=== PATIENT | male | born 1955 | race Caucasian/White ===

== ENCOUNTER 2016-12-01 05:51 | Inpatient (IN) | payer OTHER ==
--- NOTE | 2016-11-17 14:06 | PAT Medication Instructions ---
Service Date Nov 17, 2016. Current Home Medication List No Active Prescriptions or Reported Meds Medication Instructions For Your Scheduled Surgery No Active Prescriptions or Reported Meds- Please contact PAT department if starting any medications prior to surgery. If you have any questions please call us at [phone] (Yani Cabral PA-C) or [phone] or [phone]
[2016-11-17 14:21] LABS: BASO % 0.4 %; BASO ABS # 0.02 K/uL (0-0.2); COMPLETE YES; HEMATOCRIT 44.1 % (42-52); IG% 0.2 %; LYMPH % 27.1 %; LYMPH ABS # 1.39 K/uL (1.2-3.4); MEAN CELL VOLUME 86.1 fL (80-100); MEAN CORPUSCULAR HEMOGLOBIN 29.9 pg (25-34); MEAN CORPUSCULAR HGB CONC 34.7 g/dl (32-36); MEAN PLATELET VOLUME 10.5 fL (7.4-10.4); MONO % 5.1 %; NEUT % 66.2 %; PLATELET COUNT 232 K/uL (130-400); RED BLOOD COUNT 5.12 M/uL (4.7-6.1); WHITE BLOOD COUNT 5.12 K/uL (4.8-10.8)
--- NOTE | 2016-11-17 14:24 | DIAGNOSTIC IMAGING REPORT ---
CHEST PREADMISSION(PA/LAT) CLINICAL HISTORY: Preoperative evaluation. COMPARISON STUDY: No previous studies for comparison. FINDINGS: Lung volumes are at the lower limits of normal. There is no pneumothorax or pleural effusion. There is no evidence of pulmonary edema. Cardiac size is at the upper limits of normal. Linear right lower lung opacities favor atelectasis. There is no evidence of pulmonary edema. IMPRESSION: No acute cardiopulmonary findings. Electronically signed by: Juan Jenkins M.D. 11/17/2016 2:22 PM Dictated Date/Time: 11/17/2016 2:22 PM
[2016-11-17 14:47] LABS: URINE APPEARANCE CLEAR (CLEAR); URINE BILIRUBIN NEG (NEG); URINE COLOR YELLOW; URINE NITRITE NEG (NEG); URINE SPECIFIC GRAVITY 1.012 (1.000-1.030); UROBILINOGEN NEG (NEG)
[2016-11-17 14:53] LABS: MANUAL MICROSCOPIC REQUIRED? NO; REVIEW REQ? NO
[2016-11-17 15:30] LABS: CALCIUM 9.5 mg/dl (8.5-10.1)
[2016-11-17 15:58] LABS: BUN/CREATININE RATIO 10.2 (10-20); CREATININE 0.89 mg/dl (0.60-1.40); POTASSIUM 4.2 mmol/L (3.5-5.1)
[~2016-12-01] VITALS: Ht 180.3 cm; Wt 98.7 kg
[2016-12-01] VITALS (15 sets, daily range): BP systolic 134–158; BP diastolic 79–95; PULSE 69–86; TEMP 36.3–36.8; O2SAT 93–96; Ht 180.3 cm; Wt 98.7 kg
[2016-12-01] MEDS ORDERED: LACTATED RINGER'S 1000ML 1,000 ML IV SCH (06:00)
[2016-12-01] MEDS ORDERED: CEFAZOLIN 2000 MG/60 ML D5W IV SCH (06:00)
[2016-12-01] MEDS ORDERED: FENTANYL CITRATE INJ 50 MCG/1 ML 2 ML VIAL ONE ×4 (06:43→09:22)
[2016-12-01] MEDS ORDERED: MIDAZOLAM HCL 1 MG/ML 2ML VIAL ONE (06:43)
[2016-12-01] MEDS ORDERED: BACITRACIN 50000 UNIT VIAL ONE (07:01)
[2016-12-01] MEDS ORDERED: SODIUM CHLORIDE 0.9% PF 50 ML VIAL ONE (07:01)
--- NOTE | 2016-12-01 07:31 | History & Physical Bridge Note ---
H&P Re-Evaluation Bridge Note: I have examined the patient, reviewed the History & Physical and in the interval since the performance of the History & Physical I have noted the following changes of clinical significance: No changes noted
--- NOTE | 2016-12-01 07:33 | History and Physical ---
History & Physical Date December 01, 2016. Chief Complaint neck and arm pain History of Present Illness The patient is a 60 year old male with complaints of Additional History Hepatic Disease: No Endocrine Disorder: No Kidney Disease: No Hypertension: No Heart Disease: No Bleeding Tendencies: No Infectious Diseases: No Allergies Coded Allergies: Penicillins (Verified Allergy, Unknown, UNKNOWN, 12/01/16) Home Medications No Active Prescriptions or Reported Meds Physical Examination Skin: warm/dry, no rash Eyes: normal inspection, EOMI, sclerae normal ENT: normal ENT inspection, pharynx normal Head: normocephalic, atraumatic Neck: supple, no adenopathy, trachea midline Respiratory/Chest: lungs clear, normal breath sounds, no respiratory distress Cardiovascular: regular rate, rhythm, no edema, no murmur Abdomen / GI: normal bowel sounds, non tender Back: normal inspection Extremities: normal inspection, normal range of motion Neurologic/Psych: no motor/sensory deficits, alert, normal reflexes, oriented x 3 Diagnosis cervical stenosis Plan of Treatment anterior discectomy C4-5 corpectomy C6 with fusion
[2016-12-01] MEDS ORDERED: NURSING VERBAL MED ORDER ONE (07:35)
[2016-12-01] MEDS ORDERED: CLINDAMYCIN 600 MG/54 ML D5W IV ONE (07:36)
[2016-12-01] MEDS ORDERED: NALOXONE HCL 0.4 MG/1 ML VIAL/CARP IV PRN ×2 (08:00→10:00)
[2016-12-01] MEDS ORDERED: ATROPINE SULFATE 0.1 MG/ML 5ML SYR IV PRN (08:00)
[2016-12-01] MEDS ORDERED: FLUMAZENIL 0.1 MG/1 ML 10 ML VIAL IV PRN (08:00)
[2016-12-01] MEDS ORDERED: ONDANSETRON INJ 2 MG/ML 2 ML VIAL IV PRN ×2 (08:00→10:00)
[2016-12-01] MEDS ORDERED: MEPERIDINE HCL 25 MG/ML CARP IV PRN (08:00)
[2016-12-01] MEDS ORDERED: PHENYLEPHRINE 100MCG/ML 5ML SYR IV PRN (08:00)
[2016-12-01] MEDS ORDERED: HYDROmorphone INJ 1 MG/ML SYR IV PRN ×2 (08:00→10:00)
[2016-12-01] MEDS ORDERED: LABETALOL HCL IV 5 MG/ML 20ML IV PRN (08:00)
[2016-12-01] MEDS ORDERED: EpHEDrine SULFATE INJ 50 MG/ML AMP IV PRN (08:00)
[2016-12-01] MEDS ORDERED: MoRPHine SULFATE 10 MG/ML CARP/VIAL IV PRN (08:00)
[2016-12-01] MEDS ORDERED: HYDROmorphone INJ 2 MG/ML SYR/VIAL ONE ×2 (08:03→10:04)
[2016-12-01] MEDS ORDERED: ROCURONIUM BROMIDE 10 MG/ML 5 ML VIAL ONE (09:24)
[2016-12-01] MEDS ORDERED: PROPOFOL IV EMULSION 10 MG/ML 20 ML VIAL IV ONE (09:24)
[2016-12-01] MEDS ORDERED: DEXAMETHASONE SOD INJ 4 MG/ML VIAL ONE (09:24)
[2016-12-01] MEDS ORDERED: EpHEDrine SULFATE 50MG/5ML SYR ONE ×2 (09:24→10:15)
[2016-12-01] MEDS ORDERED: LIDOCAINE HCL 2% 2 ML VIAL (20MG/ML) ONE (09:24)
[2016-12-01] MEDS ORDERED: FLOSEAL HEMOSTATIC MATRIX 5ML TOP ONE (09:46)
[2016-12-01] MEDS ORDERED: ACETAMINOPHEN IV 100 ML IV PRN (10:00)
[2016-12-01] MEDS ORDERED: MAGNESIUM HYDROXIDE SUSP 30 ML UDC PO PRN (10:00)
[2016-12-01] MEDS ORDERED: DEXAMETHASONE INJ 8 MG in SYRINGE 0 ML IV PRN (10:00)
[2016-12-01] MEDS ORDERED: RACEPINEPHRINE 2.25% NEBU SOLN 0.5 ML VIAL INH PRN (10:00)
[2016-12-01] MEDS ORDERED: LORAZEPAM 0.5 MG TAB PO PRN (10:00)
[2016-12-01] MEDS ORDERED: LORAZEPAM INJ 0.5 MG in SYRINGE 0.75 ML IV PRN (10:00)
[2016-12-01] MEDS ORDERED: DiphenhydrAMINE HCL 50 MG/ML VIAL IV PRN (10:00)
[2016-12-01] MEDS ORDERED: DO NOT ADMINISTER FLU VACCINE PRN ×3 (10:00)
[2016-12-01] MEDS ORDERED: OXYCODONE HCL IR 5 MG TAB (IMMEDIATE RELEASE) PO PRN (10:00)
[2016-12-01] MEDS ORDERED: DO NOT ADMINISTER PNEUMOCOCCAL VACCINE PRN ×2 (10:00)
[2016-12-01] MEDS ORDERED: NEOSTIGMINE METHYLSULFATE 1 MG/ML 10ML VIAL ONE (10:15)
[2016-12-01] MEDS ORDERED: ONDANSETRON INJ 2 MG/ML 2 ML VIAL ONE (10:15)
[2016-12-01] MEDS ORDERED: GLYCOPYRROLATE INJ 0.2 MG/ML VIAL ONE (10:15)
[2016-12-01] MEDS ORDERED: ESMOLOL HCL 10 MG/ML 10 ML VIAL ONE (10:15)
--- NOTE | 2016-12-01 10:26 | DIAGNOSTIC IMAGING REPORT ---
INTRAOPERATIVE FLUOROSCOPIC IMAGES OF THE CERVICAL SPINE CLINICAL HISTORY: ACDF C4-5/C6 CORPECTOMY COMPARISON STUDY: No previous studies for comparison. Fluoroscopy time: 10 seconds. FINDINGS: 2 fluoroscopic images demonstrate C4-C5 discectomy. There is a C6 corpectomy. There are 2 screws at the C4, C5 and C7 levels. IMPRESSION: Fluoroscopic images demonstrate a C4-C5 anterior discectomy and C6 corpectomy. Electronically signed by: Juan Jenkins M.D. 12/01/2016 10:25 AM Dictated Date/Time: 12/01/2016 10:24 AM
--- NOTE | 2016-12-01 11:11 | Anesthesiology Progress Note ---
Anesthesia Post Op Note Date & Time December 01, 2016 at 11:11 Vital Signs Pain Intensity: 0 Vital Signs Past 12 Hours Date Time Temp Pulse Resp B/P Pulse Ox O2 Delivery O2 Flow Rate FiO2 12/01/16 10:15 36.1 78 16 155/90 96 Mask 10 12/01/16 06:28 36.5 69 20 150/95 95 Room Air Notes Mental Status: alert / awake / arousable, participated in evaluation Pt Amnestic to Procedure: Yes Nausea / Vomiting: adequately controlled Pain: adequately controlled Airway Patency, RR, SpO2: stable & adequate BP & HR: stable & adequate Hydration State: stable & adequate Anesthetic Complications: no major complications apparent
[2016-12-01] MEDS: LACTATED RINGER'S 1000ML 1,000 ML IV SCH ×2 (12:00→23:00)
[2016-12-01] MEDS ORDERED: SCOPOLAMINE 1.5 MG TDSY TD SCH (13:00)
--- NOTE | 2016-12-01 13:46 | OPERATIVE REPORT ---
DATE OF OPERATION: 12/01/2016 PREOPERATIVE DIAGNOSES: Cervical spondylosis, myeloradiculopathy. POSTOPERATIVE DIAGNOSIS: Same. PROCEDURE PERFORMED: 1. Anterior cervical corpectomy C6. 2. Anterior cervical discectomy C4-C5. 3. Anterior cervical arthrodesis, C4-C5 and C5-C7. 4. Placement of PEEK cage 8 mm at C4-C5 and a 27 mm in height at C5-C7. 5. Placement of locally harvested morcellized autograft combined with Reva bone grafting in the interbody cages. 6. Application of Beaulieu plate and screws from C4-C7. SURGEON: Dr. Wes Wooten. CLINICAL ATHLETIC INSTRUCTOR: Due to the complex nature of the procedure, the entire surgery was performed with the regulatory assistant of REHAN Monte. The program assistant, under direct supervision, was involved in the actual performance of all aspects of the surgical procedure including hemostasis, tissue retraction and incision, instrument management, patient positioning, and wound closure. ANESTHESIA: General. DISPOSITION: The patient awakened and taken to PACU in stable condition. HISTORY OF PATIENT'S PROBLEMS: This is a 60-year-old male who presents with above-mentioned diagnosis and after failing extensive course of nonoperative care, elected to undergo the above-mentioned procedure. Risks, benefits, pros, cons, and alternatives were outlined in detail preoperatively. PROCEDURE: The patient was met with preoperatively, the case discussed and all questions were addressed. At that point the patient was taken back to operative suite and after undergoing successful general inhalation by the department of anesthesia was placed in supine position on Bi table with head in Jaramillo head bucker. All bony prominences were well padded and the eyes were inspected to ensure there was no external pressure placed upon them. At this point, anterior cervical spine was prepped and draped in normal sterile fashion. With assistance of fluoroscopy, we identified the C5-C6 disk space and transverse incision was placed on the right anterior aspect of the cervical spine overlying this region. Sharp dissection with the assistance of bipolar cautery performed down to and exposing the anterior cervical spine from C4-C7. We verified our position with fluoroscopy. A self-retaining retractor was then placed in. I then proceeded with a complete discectomy of C5-C6 out to the uncovertebral joints bilaterally followed by C6-C7. Surrency distracting pins were then placed in C5 and C7 to distract across the C6 vertebral body. A complete corpectomy was then performed including removal of all posterior fibers, longitudinal ligaments and evidence of disk material within the foramen, particularly the C6-C7 level. After complete decompression, endplates were burred to subcortical bleeding bone and a 25 mm PEEK cage filled with Reva bone grafting locally harvested morcellized autograft tapped into position. I then proceeded to C4-C5 and again a complete discectomy was performed out to the uncovertebral joints bilaterally. I removed all posterior annular fibers and longitudinal ligament for complete decompression. Endplates were burred to subcortical bleeding bone and 8 mm cortical autograft filled with locally harvested morcellized autograft and Reva bone grafting tapped into position. Distracting apparatus was removed, all anterior osteophytes burred to a smooth cortical surface and a Beaulieu plate and screws applied with the assistance of fluoroscopy. Incision was then copiously irrigated, explored to ensure there was no damage to surrounding structures or remaining bleeding. A 10 round RODRIGO drain inserted then closed with 2-0 Vicryl in the fascia, 4-0 Monocryl for final skin closure. Steri-Strips and sterile dressing placed. The patient was awakened and taken to PACU in stable condition. I attest to the content of the Intraoperative Record and any orders documented therein. Any exceptio ns are noted below.
[2016-12-01] MEDS ORDERED: NURSING DECISION MEDICATION ORDER SCH (15:15)
[2016-12-01] MEDS ORDERED: CHLORASEPTIC 1.4% SOLN 180 ML BTL MT PRN (15:15)
[2016-12-01] MEDS: CLINDAMYCIN IV 600 MG in DEXTROSE 5% ADD-VANTAGE 50ML 50 ML IV SCH ×2 (16:03→23:27)
[2016-12-01] MEDS: CHECK SCOPOLAMINE PATCH PLACEMENT SCH ×2 (16:03→23:29)
[2016-12-01] MEDS: DEXAMETHASONE INJ 6 MG in SYRINGE 0 ML IV SCH ×2 (16:03→23:28)
[2016-12-01] MEDS: DOCUSATE SODIUM 100 MG CAP PO SCH (20:52)
[2016-12-02] VITALS (9 sets, daily range): BP systolic 124–136; BP diastolic 73–80; PULSE 76–88; TEMP 36.4–36.8; O2SAT 90–94
[2016-12-02] MEDS ORDERED: RXC5 PO (08:03)
--- NOTE | 2016-12-02 08:04 | Discharge Instructions ---
Discharge Instructions Date of Service December 02, 2016. Admission Reason for Admission: Cervical Spinal Stenosis Discharge Discharge Diagnosis / Problem: cervical stenossi Discharge Goals Goal(s): Improve function Activity Recommendations Activity Limitations: per Instructions/Follow-up section . Instructions / Follow-Up Instructions / Follow-Up ACTIVITY RECOMMENDATIONS: SELF CARE INSTRUCTIONS AFTER CERVICAL FUSIONS 1. No smoking. Smoking drastically decreases the chance of a solid fusion. 2. No bending, lifting more than 5 pounds, or twisting (roll like a log when turning in bed). 3. You may shower 3 days after surgery. Thoroughly dry wound. Do not soak in the tub. 4. Cervical collar: Must be worn at all times including sleeping. You may remove the brace only to bath, eat and if you are sitting in a recliner. 5. Please walk as much as you can for exercise. Gradually increase the distance that you walk as your endurance increases. SPECIAL CARE INSTRUCTIONS: VERY IMPORTANT TO READ AND REVIEW A. Do not take any anti-inflammatory medications (i.e. Indocin, Advil, Aspirin, Naprosyn, Aleve, Motrin, etc.) as these may inhibit the chance of a solid fusion. Tylenol is okay to take. B. Your surgical incision has been closed with a cosmetic suture under the skin that will dissolve in about 6 weeks. In 14 days, you can use a pair of clean scissors and cut the suture that is left outside of the skin at the ends of your incision. C. Complications are uncommon, but please contact us if you have any signs or symptoms of: 1. wound infection (fever higher than 102.5 degrees F, redness, separation of wound, drainage, or increasing pain from the incision) 2. blood clots in legs (pain, swelling, redness and warmth in legs) 3. urinary tract infection (fever higher than 102.5 degrees, burning upon urination or increased frequency of urination) 4. nerve problems (inability to walk on your toes or heels, numbness, loss of bowel or bladder control) 5. any other symptoms that concern you. D. Please call the office at if you have any concerns or questions about your operation or recovery. MANAGING PAIN AFTER SPINAL SURGERY 1. Narcotic medication is intended for short-term use and will be provided for surgical pain. Surgical pain usually lasts for a period of 4-6 weeks. Narcotic medication includes Percocet, Vicodin, Darvocet, Tylenol #3 or Lortab. 2. Longer-term pain is more appropriately treated with non-narcotic medication such as Tylenol ES. 3. Muscle spasm is not appropriately treated with narcotics. Muscle relaxers such as Soma, Flexeril or Skelaxin can be used along with Tylenol ES. 4. Remember that we all live with some "aches and pains". This is not unusual or uncommon after an injury or as we get older. 5. We will provide appropriate medication within the normal guidelines of their prescribed use. We will also be very cautious and aware of potential abuse and extended duration of patients' medication needs. 6. Please allow 2-3 days to process refills. Prescriptions will not be mailed but must be picked up at the office. FOLLOW UP VISIT: Keep your scheduled follow-up appointment. Any questions, please call the office at . Current Hospital Diet Patient's current hospital diet: Clear Liquid Diet Discharge Diet Recommended Diet: Regular Diet Procedures Procedures Performed: C4-C5 Anterior Cervical Discectomy and Fusion; Removal of Intervertebral Disc / Decompression; Placement of Prosthetic Spacer / Allograft ; Anterior Plate and Screw Fixation; C6 Corpectomy Pending Studies Studies pending at discharge: no Medical Emergencies . Who to Call and When: Medical Emergencies: If at any time you feel your situation is an emergency, please call 911 immediately. . Non-Emergent Contact Non-Emergency issues call your: Primary Care Provider . "Provider Documentation" section prepared by Wes Wooten. . VTE Core Measure Inpt VTE Proph given/why not?: Bam Bro, SCD's
[2016-12-02] MEDS: CLINDAMYCIN IV 600 MG in DEXTROSE 5% ADD-VANTAGE 50ML 50 ML IV SCH (08:18)
[2016-12-02] MEDS: CHECK SCOPOLAMINE PATCH PLACEMENT SCH (08:19)
[2016-12-02] MEDS: DOCUSATE SODIUM 100 MG CAP PO SCH (08:19)
[2016-12-02] MEDS: DEXAMETHASONE INJ 6 MG in SYRINGE 0 ML IV SCH (08:19)
--- NOTE | 2016-12-02 08:29 | DISCHARGE SUMMARY ---
DATE OF DISCHARGE: 12/02/2016. PRINCIPAL DIAGNOSIS: Cervical spinal stenosis. HOSPITAL COURSE FOLLOWS: On 12/01/2016 patient underwent anterior cervical discectomy and fusion and corpectomy and tolerated this well and taken to the orthopedic floor postoperatively. Postop day #1, he was ambulating well. Arm symptoms improved, swallowing without difficulty. RODRIGO drain decreased appropriately. Subsequently discharged home. Discharge orders and instructions can be found on the chart for further review.
--- NOTE | 2016-12-02 08:40 | Anesthesiology Progress Note ---
Anesthesia Post Op Note Date & Time December 02, 2016 at 08:39 Vital Signs Pain Intensity: 6.0 Vital Signs Past 12 Hours Date Time Temp Pulse Resp B/P Pulse Ox O2 Delivery O2 Flow Rate FiO2 12/02/16 07:58 82 16 92 Room Air 12/02/16 07:04 36.6 80 16 128/80 92 Room Air 12/02/16 06:50 36.4 80 16 134/78 90 Room Air 12/02/16 05:57 Room Air 93.0 12/02/16 04:50 36.6 80 16 136/78 94 Nasal Cannula Humidified Oxygen 12/02/16 03:34 76 16 93 Nasal Cannula 2.0 12/02/16 02:50 36.6 77 16 125/76 94 Nasal Cannula Humidified Oxygen 12/02/16 00:48 36.5 82 16 128/73 93 Nasal Cannula 3.0 Humidified Oxygen 12/01/16 23:34 86 16 95 Nasal Cannula 3.0 12/01/16 23:30 Nasal Cannula 2.0 Humidified Oxygen 12/01/16 22:50 36.8 85 18 158/85 94 Nasal Cannula 3.0 Humidified Oxygen 12/01/16 20:47 36.6 85 18 157/79 94 Humidified Oxygen 3.0 Notes Mental Status: alert / awake / arousable, participated in evaluation Anesthetic Complications: no major complications apparent
[2016-12-03] MEDS ORDERED: BISACODYL 5 MG TABEC PO PRN (06:00)
[2016-12-03] MEDS ORDERED: BISACODYL 10 MG SUPP PR PRN (06:00)
== END 2016-12-02 11:32 | disposition home or self-care (01) | DRG 473 ==
LOC: ENRESERVTM → ENRESERVDT → C.ACU 05:51 → C.3E 07:20
PROVIDERS: ADMIT Orthopaedic Surgery Orthopaedic Surgery of the Spine; ATTEND Orthopaedic Surgery Orthopaedic Surgery of the Spine
PROC: 0RG20A0 Fusion of 2 or more Cervical Vertebral Joints with Interbody Fusion Device, Anterior Approach, Anterior Column, Open Approach (ICD-10-PCS; principal; 2016-12-01 07:45)
PROC: 0RT30ZZ Resection of Cervical Vertebral Disc, Open Approach (ICD-10-PCS; principal; 2016-12-01 07:45)
DX: M48.02 Spinal stenosis, cervical region (principal); M47.22 Other spondylosis with radiculopathy, cervical region; Z88.0 Allergy status to penicillin